=== PATIENT | male | born 2000 | race American Indian/Alaskan Native ===

== ENCOUNTER 2021-12-04 00:17 | Emergency (ER) | payer SELFPAY ==
[2021-12-04] MEDS ORDERED: Amoxicillin/Clavulanate K 875-125 MG Tab PO ONE (00:18)
[2021-12-04] MEDS ORDERED: Diphtheria,Pertussis(Acell),Tetanus Vaccine 0.5 ML Syringe IM ONE (00:29)
[2021-12-04] MEDS ORDERED: Bacitracin Oint 1 GM U/D Packet TOP ONE (00:30)
[2021-12-04] MEDS ORDERED: Lidocaine 1% 5 ML VIAL INJECT ONE (00:30)
[2021-12-04] MEDS ORDERED: Amoxicillin/Clavulanate K 875-125 MG Tab ONE (01:29)
== END 2021-12-04 01:38 | disposition home or self-care (01) ==
LOC: DL.ED 00:17
DX: S62.646B Nondisplaced fracture of proximal phalanx of right little finger, initial encounter for open fracture (principal); Z23 Encounter for immunization; W23.1XXA Caught, crushed, jammed, or pinched between stationary objects, initial encounter
CPT/HCPCS: 12001; 73140; 90471; 90715; 99283; A9270; 99282